=== PATIENT | female | born 1950 | race African-American/Black ===

== ENCOUNTER 2020-12-16 14:11 | Emergency (ER) | payer MEDICARE, OTHER ==
[~2020-12-16] VITALS: Ht 167.6 cm; Wt 45.4 kg
[2020-12-16] MEDS ORDERED: ONDANSETRON HCL 4 MG/2 ML VIAL IV ONE (16:00)
[2020-12-16] MEDS ORDERED: HYDROmorphone HCL 2 MG/ML VL IV ONE ×2 (16:00→17:00)
[2020-12-16 17:30] VITALS: BP 154/84
== END 2020-12-16 17:57 | disposition home or self-care (01) ==
LOC: ER 14:11
DX: G89.29 Other chronic pain (principal); M54.5 Low back pain; I10 Essential (primary) hypertension
CPT/HCPCS: 96374; 96375; 96376; 99284; J1170; J2405